=== PATIENT | male | born 1965 | race Caucasian/White ===

== ENCOUNTER 2021-03-18 06:30 | Day surgery (SDC) | payer OTHER ==
[~2021-03-18] VITALS: Ht 182.9 cm; Wt 94.0 kg
[~2021-03-18 06:30] MED LIST: ASPIRIN EC81 MG PO; CETIRIZINE HCL10 MG PO; ICAPS MV TABLE1 EACH PO; LISINOPRIL-HCT1 EAC2 PO; RANITIDINE HCL150 M1 PO; VITAMIN D21250 MCG PO
[2021-03-18] MEDS ORDERED: ICAPS AREDS2 T1 EACH PO (06:49)
--- NOTE | 2021-03-18 07:58 | NUR ---
03/18/21 0758 Elizabeth Frey 0752 PATIENT ARRIVES TO PACU SLEEPING. AWAKENS WITH VERBAL STIMULI. RESP EVEN AND UNLABORED, NC AT 2 LITERS.
--- NOTE | 2021-03-18 09:02 | OR ---
[facility] [address], [place] [address] Signed DATE OF OPERATION: 03/18/2021 SURGEON: Raina Caballero MD PREOPERATIVE DIAGNOSES: 1. Paternal grandfather with colonic polyps. 2. Father with colonic polyps, age 65. 3. Maternal grandfather with colon cancer. POSTOPERATIVE DIAGNOSES: 1. Small shallow single sigmoid diverticulum x1. 2. Minimal internal and external hemorrhoids. 3. Mildly swollen indurated prostate (left greater than right). PROCEDURE: Colonoscopy without biopsy. ESTIMATED BLOOD LOSS: None. INDICATIONS: Sly is a 55-year-old gentleman, who returns for a followup colonoscopy. We know his father had colonic polyps at age 65. A paternal grandfather had colonic polyps. His maternal grandfather had colon cancer. Sly told me both his grandfathers had prostate cancer. Sly has no lower GI complaints. I gave him a pamphlet in the office on colonoscopy. He understands the nature of that test. There is risk including, but not limited to gas bloating, crampy abdominal pain, bleeding, perforation requiring surgery, and missed diagnosis. He also understands the need for IV conscious sedation. He had expressed and understanding wished to proceed. PROCEDURE NOTE: Sly was taken into our endoscopy suite and placed in the left lateral decubitus position. He took 9 mg of Versed and 200 mcg of fentanyl to cover the case. A digital rectal exam was performed and he has very minimal if any external hemorrhoid tissue. He had good sphincter tone. Prostate was mildly swollen and enlarged. The left is more prominent than the right. The adult colonoscope was introduced and advanced under direct visualization of camera without difficulty. His prep was quite excellent. He took some extra sedation in order to advance the scope directly into the cecum itself. We could easily see the appendiceal orifice and ileocecal valve. The scope was then slowly withdrawn. We took pictures throughout for photodocumentation. We visualized a Electronically Signed By: RAINA CABALLERO MD 03/18/21 0902 PATIENT NAME: SLY LAM OPERATIVE REPORT DATE OF : 65 REPORT #: [id number] PHYSICIAN: RAINA CABALLERO MD PCP: MATTHEW FRIAS REPORT IS CONFIDENTIAL AND NOT TO BE RELEASED WITHOUT AUTHORIZATION [facility] [address], [place] [address] Signed single shallow diverticulum in the mid sigmoid colon. No polyps noted. The rectum was unremarkable. Upon retroflexion of the scope, really minimal if any internal hemorrhoid tissue at all. After this, the gas was suctioned out and colonoscope removed. Sly tolerated the procedure quite well. RECOMMENDATIONS: Sly can return in 5 years for a repeat colonoscopy due to his family history. Raina Caballero MD ALB/MODL /[id number] cc: SOTERO Hinson MD Copies: MATTHEW FRIAS ANDREW L MD ~ Electronically Signed By: RAINA CABALLERO MD 03/18/21 0902 PATIENT NAME: SLY LAM OPERATIVE REPORT DATE OF : 65 REPORT #: [id number] PHYSICIAN: RAINA CABALLERO MD PCP: MATTHEW FRIAS PAC REPORT IS CONFIDENTIAL AND NOT TO BE RELEASED WITHOUT AUTHORIZATION
== END 2021-03-18 08:40 | disposition home or self-care (01) ==
LOC: DS 06:30 → OPS 06:30 → DS 06:45 → OPS 08:40
PROVIDERS: ATTEND Colon & Rectal Surgery
PROC: 0DJD8ZZ Inspection of Lower Intestinal Tract, Via Natural or Artificial Opening Endoscopic (ICD-10-PCS; principal; 2021-03-18 06:45)
DX: Z12.11 Encounter for screening for malignant neoplasm of colon (principal); K57.30 Diverticulosis of large intestine without perforation or abscess without bleeding; K64.8 Other hemorrhoids; K64.4 Residual hemorrhoidal skin tags; N40.0 Benign prostatic hyperplasia without lower urinary tract symptoms; I10 Essential (primary) hypertension; Z80.0 Family history of malignant neoplasm of digestive organs; Z83.71 Family history of colonic polyps; Z88.2 Allergy status to sulfonamides
CPT/HCPCS: 99153; G0500; J2250; J3010; J7121